=== PATIENT | female | born 1990 | race Caucasian/White ===

== ENCOUNTER 2023-05-30 05:15 | Day surgery (SDC) | payer OTHER ==
[2023-05-26 15:33] VITALS: BMI 29.5
[2023-05-30] MEDS ORDERED: TRIAMCINOLONE ACET 40MG/1ML VIAL ONE (07:17)
[2023-05-30 08:10] VITALS: RESP 18
[2023-05-30] MEDS ORDERED: ACETAMINOPHEN 500 MG TABLET (FP) PO PRN (09:42)
[2023-05-30] MEDS ORDERED: BUPIVACAINE HCL/PF 0.5% (5MG/ML) 10 ML VIAL IJ ONE (10:18)
[2023-05-30] MEDS ORDERED: IOHEXOL 180 MG/1 ML ML IJ ONE (10:18)
[2023-05-30] MEDS ORDERED: TRIAMCINOLONE ACETONIDE 40 MG/ML 10 ML VIAL IJ ONE (10:18)
[2023-05-30] MEDS ORDERED: LIDOCAINE HCL 1%, 10 MG/ML (50 mL VIAL) INF ONE (10:18)
[2023-05-30 10:54] VITALS: BP 100/65; PULSE 76; TEMP 98
== END 2023-05-30 10:51 | disposition home or self-care (01) ==
LOC: JASU-SURG 05:15
PROVIDERS: ATTEND Pain Medicine Pain Medicine
PROC: 3E0U3BZ Introduction of Anesthetic Agent into Joints, Percutaneous Approach (ICD-10-PCS; 2023-05-30)
PROC: 3E0U33Z Introduction of Anti-inflammatory into Joints, Percutaneous Approach (ICD-10-PCS; principal; 2023-05-30 09:30)
DX: M16.12 Unilateral primary osteoarthritis, left hip (principal)
CPT/HCPCS: 76000-TC-FY; 81025